=== PATIENT | female | born 1975 | race Caucasian/White ===

== ENCOUNTER → 2020-10-18 15:46 | Outpatient (CLI) | payer OTHER, SELFPAY ==
--- NOTE | ~2020-10-18 | MM_ITS ---
EXAMINATION: MM screening stefan BI w moris HISTORY: Screening TECHNIQUE: Craniocaudal and mediolateral oblique 3-D tomosynthesis images were obtained and synthetic 2-D images were generated. CAD analysis was submitted and interpreted. COMPARISON: Comparison to multiple prior studies sequentially, with oldest reviewed study dated 12/19. BREAST PARENCHYMAL COMPOSITION: There are scattered areas of fibroglandular density. FINDINGS: There is no evidence of suspicious mass, calcification, or architectural distortion to sugg est malignancy in either breast. There has been no suspicious interval change. IMPRESSION: 1. No mammographic evidence of malignancy. 2. Recommend routine screening mammography in one year. BI-RADS Category 1: Negative Reviewed, dictated and finalized at location A. DENTIAL ROOFER
== END ==
PROVIDERS: Visit Provider Obstetrics & Gynecology
DX: Z12.31 Encounter for screening mammogram for malignant neoplasm of breast (principal)
CPT/HCPCS: 77063; 77067

== ENCOUNTER 2021-09-22 10:04 | Emergency (ER) | payer OTHER, SELFPAY ==
--- NOTE | ~2021-09-22 | XR_ITS ---
EXAMINATION: XR chest 2V DATE: 09/22/2021 10:37 INDICATION: Cough TECHNIQUE: PA and lateral views of the chest are obtained. COMPARISON: None available FINDINGS: The lungs are free of acute opacities. There is no pleural effusion or pneumothorax. The ca rdiomediastinal silhouette is normal. The visualized bones and soft tissues are unremarkable. IMPRESSION: 1. No acute cardiopulmonary abnormality. Reviewed, dictated and finalized at location A. [facility]
[2021-09-22 10:14] VITALS: BP 133/85; PULSE 115; RESP 16; TEMP 36.1; O2SAT 96
--- NOTE | 2021-09-22 10:24 | ED.URI ---
HPI - URI/Sore Throat General Chief Complaint: Ear Stated Complaint: Ear Pain Time Seen by Provider: 09/22/21 10:24 Source: patient, RN notes reviewed and old records reviewed History of Present Illness HPI Narrative: 45-year-old female presents to the [facility] with complaints of sinus pressure, bilateral ear pressure, productive cough. Has a frontal headache. Patient reports that she was diagnosed with a sinus infection early to mid August and did 2 weeks of amoxicillin. States she has not gotten completely better. Has had drainage, takes Flonase daily. Has changed her allergy to medication to Xyzal. Past medical history includes migraines, vitamin D deficiency and seasonal allergies Related Data Home Medications Medication Instructions Recorded Confirmed contraceptive PO 01/07/21 06/03/21 pirbuterol 200 mcg/actuation mcg INHALATION 01/07/21 06/03/21 aerosol inhaler rizatriptan 5 mg tablet 5 mg PO ONCE 01/07/21 06/03/21 topiramate 15 mg sprinkle capsule 75 mg PO DAILY 01/07/21 06/03/21 Allergies Allergy/AdvReac Type Severity Reaction Status Date / Time Sulfa (Sulfonamide Allergy Mild Unknown Verified 09/22/21 10:10 Antibiotics) Review of Systems Review of Systems: All systems reviewed & are unremarkable except as noted in HPI and below Constitutional: Constitutional: Reports no additional constitutional complaints, Denies chills and Denies fever(s) Eyes: Eyes: Reports no additional eye complaints and Denies change in vision ENT: Reports as per HPI, Denies vertigo, Denies dizziness, Reports nasal congestion and Denies sore throat Cardiovascular: Cardiovascular: Reports no additional cardiovascular complaints and Denies chest pain Respiratory: Respiratory: Reports as per HPI, Reports cough, Denies dyspnea and Reports wheezing Gastrointestinal: Gastrointestinal: Reports no additional gastrointestinal complaints, Denies abdominal pain, Denies diarrhea, Denies nausea and Denies vomiting Musculoskeletal: Musculoskeletal: Reports no additional musculoskeletal complaints, Denies back pain, Denies joint swelling and Denies muscle cramps Integumentary/Breasts: Skin/Breast: Reports system reviewed and no additional complaints, except as docu, Denies erythema and Denies rash Neurologic: Reports as per HPI and Reports headache(s) (frontal pressure) Psychiatric: Psychiatric: Reports no additional psychiatric complaints Allergic/Immunologic: Allergic/Immunologic: Reports no additional allergic/immunologic complaints PMFSH Past Medical History Medical History Bilateral knee pain 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 There is no relevant family history pertinent to the patient complaint. Exam Const: General: alert and ill appearing acutely Nutritional Appearance: well nourished Orientation/consciousness: patient oriented x3 Limitations: no limitations HENMT: Head: normal to inspection Ears: external ears normal, TM's normal bilaterally and EAC's normal General nose exam: Normal external nose present, Abnormal mucous membranes and turbinates present boggy and erythematous and Nasal discharge present clear Face and sinus: face symmetric and sinus tender
[2021-09-22] MEDS: predniSONE 20 MG TABLET 40 MG PO (10:40)
[2021-09-22] MEDS: IPRATROPIUM BR 0.02% INH SOLN 0.5 MG/2.5 ML VIAL INHALATION (10:41)
[2021-09-22] MEDS: ALBUTEROL SULFATE NEB 2.5 MG/3 ML INH INHALATION (10:41)
== END 2021-09-22 12:00 | disposition home or self-care (01) ==
PROVIDERS: Emergency Provider Nurse Practitioner; PCP Family Medicine
DX: J40 Bronchitis, not specified as acute or chronic (principal); F17.210 Nicotine dependence, cigarettes, uncomplicated; M17.0 Bilateral primary osteoarthritis of knee
CPT/HCPCS: 71046; 99213; G0463; J7512

== ENCOUNTER → 2022-02-20 07:13 | Outpatient (CLI) | payer OTHER, SELFPAY ==
--- NOTE | ~2022-02-20 | MM_ITS ---
EXAMINATION: MM screening [facility] BI w moris HISTORY: Screening TECHNIQUE: Craniocaudal and mediolateral oblique 3-D tomosynthesis images were obtained and synthetic 2-D images were generated. CAD analysis was submitted and interpreted. COMPARISON: Comparison to multiple prior studies sequentially, with oldest reviewed study dated 12/29.. BREAST PARENCHYMAL COMPOSITION: There are scattered areas of fibroglandular density. FINDINGS: There is a new mass in the upper outer quadrant of the right breast, middle third. The left breast is stable without evidence for malignancy. IMPRESSION: 1. New right breast mass, upper outer quadrant. 2. Additional mammographic views and possible breast ultrasound are recommended. BI-RADS Category 0: Incomplete: Needs additional imaging evaluation. Reviewed, dictated and finalized at location A. IMPRESSION: 1. New right breast mass, upper outer quadrant. 2. Additional mammographic views and possible breast ultrasound are recommended . BI-RADS Category 0: Incomplete: Needs additional imaging evaluation.
== END ==
PROVIDERS: Visit Provider Nurse Practitioner Obstetrics & Gynecology
DX: Z12.31 Encounter for screening mammogram for malignant neoplasm of breast (principal); R92.8 Other abnormal and inconclusive findings on diagnostic imaging of breast
CPT/HCPCS: 77063; 77067

== ENCOUNTER → 2022-02-26 08:03 | Outpatient (CLI) | payer OTHER, SELFPAY ==
--- NOTE | ~2022-02-26 | MMUS_ITS ---
EXAMINATION: MM diagnostic stefan RT w moris, US breast RT limited HISTORY: New upper outer quadrant right breast mass reported on 02/20/2022 screening mammogram TECHNIQUE: Additional 3-D tomosynthesis images of the right breast were performed and synthetic 2-D i mages were generated. CAD analysis was submitted and interpreted. High resolution upper outer quadran t right breast ultrasound was performed. COMPARISON: 02/20/2022 and 10/18/2020 bilateral screening mammogram examinations FINDINGS: MAMMOGRAPHIC FINDINGS: Up to approximately 7.2 x 8.5 mm partially obscured opacity corresponding to the finding on 02/20/2022 screening mammogram examination is noted in the posterior upper outer right breast. ULTRASOUND: 11:00 6 cm from nipple: Parallel circumscribed 4.1 x 9.6 x 9.7 mm hypoechoic lesion with mixed sonolu cency and hypoechogenicity. There is some through transmission associated with the sonolucent areas. No suspicious shadowing or internal vascularity is noted. This may be a multi septated cyst. 12:00 9 cm from nipple: Parallel circumscribed hypoechoic 2.3 x 2.7 mm lesion without internal vascul arity or posterior shadowing IMPRESSION: 1. Probable benign findings 2. 6 month diagnostic right mammogram and upper outer quadrant right breast ultrasound examination ar e recommended BI-RADS category 3, probably benign findings. Reviewed, dictated and finalized at location A. IMPRESSION: 1. Probable benign findings 2. 6 month diagnostic right mammogram and upper outer quadrant right breast ult rasound examination are recommended BI-RADS category 3, probably benign findings.
== END ==
PROVIDERS: PCP Nurse Practitioner Obstetrics & Gynecology; Visit Provider Nurse Practitioner Obstetrics & Gynecology
DX: N63.10 Unspecified lump in the right breast, unspecified quadrant (principal); R92.8 Other abnormal and inconclusive findings on diagnostic imaging of breast
CPT/HCPCS: 76642; 77061; 77065; G0279

== ENCOUNTER 2022-06-18 08:00 | Outpatient (NON) | payer OTHER, SELFPAY | END 2022-06-18 08:01 | disposition home or self-care (01) | LOC: ANHLAB 06-19 08:23 | PROVIDERS: PCP Family Medicine; Visit Provider Internal Medicine Gastroenterology | DX: D12.2 Benign neoplasm of ascending colon (principal) | CPT/HCPCS: 88305 ==

== ENCOUNTER 2022-06-18 10:41 | Day surgery (SDC) | payer OTHER, SELFPAY ==
[2022-06-03 10:55] VITALS: BMI 31.8
[2022-06-18 11:12] VITALS: BP 111/75; PULSE 92; RESP 14; TEMP 37.6; O2SAT 97
[2022-06-18 11:13] VITALS: BMI 32.0
--- NOTE | 2022-06-18 12:01 | WPDANESEPPF ---
Anes - Initial Pre Proc Eval Procedure: Operation Date: 06/18/22 12:30 Proposed Procedures p Screening Colonoscopy - Sai Loja MD Date/Time: 06/18/22 12:01 Surgeon: Sai Loja MD Pre Op Diagnosis: Neplasm Screening Patient Data Age: 46 Gender: F Height: 1.63 m Weight: 84.55 kg Allergies Allergy/AdvReac Type Severity Reaction Status Date / Time Sulfa (Sulfonamide Allergy Mild Hives Verified 06/18/22 11:07 Antibiotics) Home Medications Medication Instructions Recorded Confirmed Type rizatriptan 5 mg tablet 5 mg PO ONCE PRN Headache 01/07/21 06/18/22 History albuterol sulfate 90 mcg/actuation 2 puff inhalation QID PRN 09/22/21 06/18/22 Rx aerosol inhaler shortness of breath or wheezing #6.7 grams cetirizine 10 mg capsule (Zyrtec) 10 mg PO DAILY 06/03/22 06/18/22 History montelukast 10 mg tablet 10 mg PO DAILY 06/03/22 06/18/22 History (Singulair) topiramate 50 mg tablet 50 mg PO BID 06/18/22 06/18/22 History Patient hx anesthesia problems: none Family hx anesthesia problems: none Results Review: All pre-operative results and documents have been reviewed as part of the pre-operative evaluation. [facility] Past Medical History Medical History Bilateral knee pain Chondromalacia of knee COPD (chronic obstructive pulmonary disease) Hx of migraines Left knee DJD Right knee DJD Surgical History Surgical History History of appendectomy History of varicose vein stripping Family History Family History Unknown Lung cancer Brain cancer Social History Social History Smoking packs per day: 0.5 Smoking cigarettes per day: 10.0 Years smoked: 28 Smoking pack-years: 14.00 Tobacco type: cigarettes Alcohol intake: current Alcohol use details: 4 per month Substance use type: does not use Living arrangements: with family Gender identity (if verbalized by the patient): Female Spiritual care concerns: No Anes - Eval Final PreProcedure Day of Procedure 06/18/22 12:01 Patient weight: obese Heart: regular rate and rhythm Lungs: decreased breath sounds Airway: Mallampati scale class II Last oral intake: >/= 8 hours ASA classification: III Emergent: no Anesthetic plan: proceed Anesthesia type and monitoring: general GIVS and standard monitoring Results Review: All pre-operative results and documents have been reviewed as part of the pre-operative evaluation. Informed Consent: The patient's anesthetic plan and its attendant risks and benefits were discussed with the patient/family/POA. Questions were solicited and answers provided to the satisfaction of the patient/family/POA.
[2022-06-18] MEDS: LACTATED RINGERS 1,000 ML 150 ML IV CONT (12:13)
--- NOTE | 2022-06-18 12:32 | PM.HPGS ---
History of Present Illness History of Present Illness Consent: Risks, benefits, and alternatives have been discussed and questions answered. Patient agrees to proceed with procedure. Chief complaint: Neplasm Screening Narrative: Rebecca Centeno is a 46 year old female here for first screening colonoscopy Review of Systems Constitutional: Constitutional: Denies headache(s) and Denies weakness Eyes: Eyes: Denies blurry vision ENT: Reports Normal hearing present, Denies headache(s) and Denies neck pain Cardiovascular: Cardiovascular: Denies chest pain and Denies dyspnea Respiratory: Respiratory: Denies dyspnea Gastrointestinal: Gastrointestinal: Reports no additional gastrointestinal complaints Genitourinary: Genitourinary: Denies dysuria Musculoskeletal: Musculoskeletal: Denies neck pain Integumentary/Breasts: Skin/Breast: Denies dry skin Neurologic: Reports Normal hearing present, Denies headache(s) and Denies weakness Psychiatric: Psychiatric: Denies anxiety Endocrine: Endocrine: Denies change in body appearance Hematologic/Lymphatic: Hematologic/Lymphatic: Denies easy bleeding Allergic/Immunologic: Allergic/Immunologic: Denies urticaria PMFSH Past Medical History Medical History (Updated 06/18/22 @ 12:32 by Sai Loja MD) Bilateral knee pain Chondromalacia of knee Colon cancer screening COPD (chronic obstructive pulmonary disease) Hx of migraines Left knee DJD Right knee DJD Surgical History Surgical History History of appendectomy History of varicose vein stripping Family History Family History Unknown Lung cancer Brain cancer Social History Social History Smoking packs per day: 0.5 Smoking cigarettes per day: 10.0 Years smoked: 28 Smoking pack-years: 14.00 Tobacco type: cigarettes Alcohol intake: current Alcohol use details: 4 per month Substance use type: does not use Living arrangements: with family Gender identity (if verbalized by the patient): Female Spiritual care concerns: No Meds Home Medications and Allergies Home Medications Medication Instructions Recorded Confirmed Type rizatriptan 5 mg tablet 5 mg PO ONCE PRN Headache 01/07/21 06/18/22 History albuterol sulfate 90 mcg/actuation 2 puff inhalation QID PRN 09/22/21 06/18/22 Rx aerosol inhaler shortness of breath or wheezing #6.7 grams cetirizine 10 mg capsule (Zyrtec) 10 mg PO DAILY 06/03/22 06/18/22 History montelukast 10 mg tablet 10 mg PO DAILY 06/03/22 06/18/22 History (Singulair) topiramate 50 mg tablet 50 mg PO BID 06/18/22 06/18/22 History Allergies Allergy/AdvReac Type Severity Reaction Status Date / Time Sulfa (Sulfonamide Allergy Mild Hives Verified 06/18/22 11:07 Antibiotics) Vital Signs Vital Signs - 24 hr 06/18/22 11:12 Temperature 99.7 F H Pulse Rate 92 Respiratory Rate 14 Blood Pressure 111/75 Pulse Oximetry 97 Oxygen Delivery Room Air Exam Const: General: comfortable and no acute distress HENMT: General nose exam: Normal nares present Eyes: General: appearance normal, both eyes and all related structures Neck: Neck: no JVD Resp: Auscultation: clear to auscultation bilaterally Cardio: Rate: regular rate Rhythm: regular rhythm GI: Inspection: non-distended GI Palp: Yes Soft to palpation Skin: General skin exam: normal color Neuro: General: gait normal Speech: normal speech Extrem: General: normal to inspection Psych: Mental Status: mental status grossly normal Assessment and Plan Assessment and plan (1) Colon cancer screening: Code(s): Z12.11 - Encounter for screening for malignant neoplasm of colon Status: Acute Assessment and Plan: colonoscopy
[2022-06-18 12:55] VITALS: BP 114/99; PULSE 81; RESP 14; O2SAT 99
[2022-06-18 13:05] VITALS: BP 120/91; PULSE 74; RESP 14; O2SAT 100
[2022-06-18 13:15] VITALS: BP 117/52; PULSE 77; RESP 14; O2SAT 99
--- NOTE | 2022-06-18 13:17 | WPDANESPN ---
Anes - Prog Note Post-Op Date/Time: 06/18/22 13:17 Cardiovascular status: normal Respiratory status: normal Airway patency: baseline Mental status: baseline Post-Op hydration status: normal Vital Signs: Last Vital Signs Temp 37.6 C H 06/18/22 11:12 Pulse 74 06/18/22 13:05 Resp 14 06/18/22 13:05 BP 120/91 H 06/18/22 13:05 Pulse Ox 100 06/18/22 13:05 O2 Del Method Room Air 06/18/22 13:05 Pain Score (VAS): 0 I/O: Intake & Output 06/17/22 06/18/22 06/18/22 23:59 07:59 15:59 Intake Total 600 Balance 600 Patient Feedback: Patient satisfied with anesthetic care.
== END 2022-06-18 13:25 | disposition home or self-care (01) ==
PROVIDERS: PCP Family Medicine; Visit Provider Internal Medicine Gastroenterology
PROC: 0DJD8ZZ Inspection of Lower Intestinal Tract, Via Natural or Artificial Opening Endoscopic (ICD-10-PCS; CPT 45378; principal; 2022-06-18 12:30)
DX: Z12.11 Encounter for screening for malignant neoplasm of colon (principal)
CPT/HCPCS: 45380

== ENCOUNTER → 2022-08-15 08:12 | Outpatient (CLI) | payer OTHER, SELFPAY ==
--- NOTE | ~2022-08-15 | MMUS_ITS ---
EXAMINATION: MM diagnostic stefan RT w moris, US breast RT limited HISTORY: Six-month follow-up for probably benign right breast masses TECHNIQUE: Craniocaudal, mediolateral, and mediolateral oblique 3-D tomosynthesis images of the right breast were performed and synthetic 2-D images were generated. CAD analysis was submitted and interp reted. High resolution limited right breast ultrasound was performed. COMPARISON: 02/26/2022, 02/20/2022, 10/18/2020, 12/13/2018 BREAST PARENCHYMAL COMPOSITION: There are scattered areas of fibroglandular density. FINDINGS: MAMMOGRAPHIC FINDINGS: There is a stable 8 mm obscured low density mass in the middle third of the upper breast at the 11:00 location 8 cm from the nipple. No suspicious calcification or architectural distortion are identifie d. ULTRASOUND: There is a stable 10 mm x 6 mm oval, circumscribed, parallel, complex cystic and solid mass at the 11 :00 location 6 cm from the nipple with no posterior features or internal vascularity, possible cluste red microcysts. There is a stable 3 mm oval, circumscribed, parallel, hypoechoic mass at the 12:00 lo cation 9 cm from the nipple. IMPRESSION: 1. Probably benign right breast masses. 2. Recommend 6 month follow-up diagnostic mammogram and ultrasound. BI-RADS category 3, probably benign findings. Reviewed, dictated and finalized at location A. IMPRESSION: 1. Probably benign right breast masses. 2. Recommend 6 month follow-up diagnostic mammogram and ultrasound. BI-RADS category 3, probably benign findings.
== END ==
PROVIDERS: PCP Family Medicine
DX: R92.8 Other abnormal and inconclusive findings on diagnostic imaging of breast (principal); N63.11 Unspecified lump in the right breast, upper outer quadrant; N63.15 Unspecified lump in the right breast, overlapping quadrants
CPT/HCPCS: 76642; 77061; 77065; G0279

== ENCOUNTER 2023-02-21 08:30 | Emergency (ER) | payer OTHER, SELFPAY ==
--- NOTE | 2023-02-21 08:36 | ED.EAR ---
HPI - Ear Problem General Chief complaint: Ear Stated complaint: Right Ear Irritation Source: patient and RN notes reviewed History of Present Illness HPI Narrative: 47-year-old female presents to urgent care with complaints of right ear pain since Thursday. Patient denies any fevers, chills sore throat, vomiting, diarrhea, chest pain, or shortness of breath. Patient states she had a sinus infection last month where she was treated with a Z-Mars unsuccessfully and then placed on Augmentin. Some parts of this dictation were generated by voice recognition software and may contain typographical and/or grammatical inaccuracies. Related Data Home Medications Medication Instructions Recorded Confirmed rizatriptan 5 mg tablet 5 mg PO ONCE PRN Headache 01/07/21 02/21/23 cetirizine 10 mg capsule (Zyrtec) 10 mg PO DAILY 06/03/22 02/21/23 montelukast 10 mg tablet 10 mg PO DAILY 06/03/22 02/21/23 (Singulair) topiramate 50 mg tablet 50 mg PO BID 06/18/22 02/21/23 Allergies Allergy/AdvReac Type Severity Reaction Status Date / Time Sulfa (Sulfonamide Allergy Mild Hives Verified 06/18/22 11:07 Antibiotics) Review of Systems Review of Systems: Pertinent positives and pertinent negatives per HPI. [facility] Past Medical History Medical History (Updated 02/21/23 @ 09:10 by Noreen Ngo, KOFI) Bilateral knee pain Chondromalacia of knee Colon cancer screening COPD (chronic obstructive pulmonary disease) Hx of migraines Left knee DJD Right knee DJD Surgical History Surgical History History of appendectomy History of varicose vein stripping Family History Family History Unknown Lung cancer Brain cancer Social History Social History Smoking packs per day: 0.5 Smoking cigarettes per day: 10.0 Years smoked: 28 Smoking pack-years: 14.00 Tobacco type: cigarettes Alcohol intake: current Alcohol use details: 4 per month Substance use type: does not use Living arrangements: with family Gender identity (if verbalized by the patient): Female Spiritual care concerns: No Comments At the time of my signature, I reviewed and agree with the nursing past medical, surgical, social, and family history. There is no relevant family history pertinent to the patient complaint. Exam Narrative: GENERAL: This is a well-nourished, well-developed patient, in no apparent distress. HEAD: normocephalic, atraumatic. EYES: Sclera clear/white. Vision is grossly intact. EARS: External ears normal, right canal and TMs erythemic. TM bulging. NOSE: External nose normal with no obvious nasal discharge, nares without redness, no rhinorrhea. THROAT: Mucous membranes moist, posterior pharynx clear. NECK: Neck supple, non-tender without lymphadenopathy, masses or thyromegaly. CARDIOVASCULAR: Regular rate RESPIRATORY: No respiratory distress SKIN: warm, intact with no suspicious lesions or rash, good texture and turgor. NEURO: awake, alert, and oriented to person, place and time. There were no obvious focal neurologic abnormalities. Course Course Level of Care: Express Care Visit Vital Signs Vital signs: Vital Signs Temperature 97.6 F 02/21/23 08:46 Pulse Rate 80 02/21/23 08:46 Respiratory Rate 14 02/21/23 08:46 Blood Pressure 101/68 02/21/23 08:46 Pulse Oximetry 98 02/21/23 08:46 Oxygen Delivery Room Air 02/21/23 08:46 Temperature 97.6 F 02/21/23 08:46 Pulse Rate 80 02/21/23 08:46 Respiratory Rate 14 02/21/23 08:46 Blood Pressure 101/68 02/21/23 08:46 Pulse Oximetry 98 02/21/23 08:46 Oxygen Delivery Room Air 02/21/23 08:46 reviewed Medical Decision Making MDM Narrative Medical decision making narrative: Take the antibiotics as directed. Follow-up with primary care and have ear reche
[2023-02-21 08:46] VITALS: BP 101/68; PULSE 80; RESP 14; TEMP 36.4; O2SAT 98
== END 2023-02-21 09:13 | disposition home or self-care (01) ==
PROVIDERS: Emergency Provider Nurse Practitioner Family; PCP Family Medicine
DX: H66.91 Otitis media, unspecified, right ear (principal); F17.210 Nicotine dependence, cigarettes, uncomplicated; F44.9 Dissociative and conversion disorder, unspecified; M17.0 Bilateral primary osteoarthritis of knee
CPT/HCPCS: 99213; G0463

== ENCOUNTER → 2023-02-23 07:33 | Outpatient (CLI) | payer OTHER, SELFPAY ==
--- NOTE | ~2023-02-23 | MMUS_ITS ---
EXAMINATION: MM diagnostic stefan BI w moris, US breast RT limited HISTORY: Six-month follow-up for probably benign right breast masses TECHNIQUE: Craniocaudal, mediolateral, and mediolateral oblique 3-D tomosynthesis images of the breas ts were performed and synthetic 2-D images were generated. CAD analysis was submitted and interpreted . High resolution limited right breast ultrasound was performed. COMPARISON: 08/15/2022, 02/26/2022, 02/20/2022, 10/18/2020 BREAST PARENCHYMAL COMPOSITION: There are scattered areas of fibroglandular density. FINDINGS: MAMMOGRAPHIC FINDINGS: Right breast: Again seen is a stable 8 mm obscured low density mass in the middle third of the upper outer quadrant of the breast at the 11:00 location 8 cm from the nipple. There has been no suspicious interval change. Left breast: No suspicious mass, calcification, or architectural distortion are identified to suggest malignancy. There has been no suspicious interval change. ULTRASOUND: There is a stable 10 mm x 5 mm oval, circumscribed, parallel, complex cystic and solid mass with no p osterior features or internal vascularity at the 11:00 location 6 cm from the nipple in the right claudio ast. Also seen is a stable 3 mm oval, circumscribed, parallel, hypoechoic mass at the 12:00 location 9 cm from the nipple in the right breast. IMPRESSION: 1. Stable, probably benign right breast masses. 2. Given one year of interval stability, recommend 12 month followup diagnostic mammogram and ultraso und. BI-RADS category 3, probably benign findings. Reviewed, dictated and finalized at location A. IMPRESSION: 1. Stable, probably benign right breast masses. 2. Given one year of interval stability, recommend 12 month followup diagnostic mammogram and ultrasound. BI-RADS category 3, probably benign findings.
== END ==
PROVIDERS: PCP Family Medicine
DX: R92.8 Other abnormal and inconclusive findings on diagnostic imaging of breast (principal)
CPT/HCPCS: 76642; 77062; 77066; G0279

== ENCOUNTER 2024-01-18 17:12 | Emergency (ER) | payer OTHER, SELFPAY ==
[2024-01-18 17:21] VITALS: BP 135/79; PULSE 89; RESP 18; TEMP 36.8; O2SAT 97
--- NOTE | 2024-01-18 17:56 | ED.GENADULT ---
HPI - General Adult General Chief complaint: Extremity Problem,Nontraumatic Stated complaint: Right Arm Pain Time Seen by Provider: 01/18/24 17:52 Source: patient, RN notes reviewed and old records reviewed Mode of arrival: ambulatory Limitations: no limitations History of Present Illness HPI narrative: patient to [facility] with right elbow pain for 2-3 weeks. Patient denies any known injury. 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 Patient has not attempted to treat at home. Patient denies numbness, tingling, decreased range of motion. Related Data Home Medications Medication Instructions Recorded Confirmed montelukast 10 mg tablet 10 mg PO DAILY 06/03/22 01/18/24 (Singulair) ergocalciferol (vitamin D2) 1,250 1,250 mcg PO WEEKLY 01/18/24 01/18/24 mcg (50,000 unit) capsule Allergies Allergy/AdvReac Type Severity Reaction Status Date / Time Sulfa (Sulfonamide Allergy Mild Hives Verified 01/18/24 17:37 Antibiotics) Review of Systems Review of Systems: All systems reviewed & are unremarkable except as noted in HPI and below Constitutional: Constitutional: Reports no additional constitutional complaints Eyes: Eyes: Reports no additional eye complaints ENT: Reports system reviewed and no additional complaints, except as documented Cardiovascular: Cardiovascular: Reports no additional cardiovascular complaints, Denies chest pain and Denies dyspnea Respiratory: Respiratory: Reports no additional respiratory complaints, Denies cough and Denies dyspnea Musculoskeletal: Musculoskeletal: Reports arthralgias ( Right elbow), Denies joint swelling, Denies muscle weakness, Denies numbness, Denies radiating pain into limb and Reports stiffness ( right elbow upon wakening) Neurologic: Reports system reviewed and no additional complaints, except as documented Psychiatric: Psychiatric: Reports no additional psychiatric complaints [facility] Past Medical History Medical History (Updated 01/18/24 @ 18:06 by Denae Bridges APRN) Bilateral knee pain Chondromalacia of knee Colon cancer screening COPD (chronic obstructive pulmonary disease) Hx of migraines Left knee DJD Right knee DJD Surgical History Surgical History History of appendectomy History of varicose vein stripping Family History Family History Unknown Lung cancer Brain cancer Social History Social History Smoking packs per day: 0.5 Smoking cigarettes per day: 10.0 Years smoked: 25 Smoking pack-years: 12.50 Smoking status: Current every day smoker Tobacco type: cigarettes Alcohol intake: current Alcohol use details: social Substance use type: does not use Living arrangements: with family Gender identity (if verbalized by the patient): Female Spiritual care concerns: No Comments At the time of my signature, I reviewed and agree with the nursing past medical, surgical, social, and family history. There is no relevant family history pertinent to the patient complaint. Exam Const: General: cooperative, healthy appearing, comfortable, no acute distress, alert and well nourished Nutritional Appearance: well nourished Orientation/consciousness: patient oriented x3 Limitations: no limitations HENMT: Head: normal to inspection Ears: external ears normal Face/Nose/Sinus: Normal external nose present, Normal nares present, normal facial exam, No erythema and No edema Face and sinus: normal facial exam, no erythema and no edema Mouth: Yes Normal oral and palatal mucosa present Eyes: General: appearance normal, both eyes and all related structures Neck: Neck: normal visual inspection, full ROM and no meningeal signs Lymphatic: no lymphadenopathy noted and no lymphedema noted Chest: Chest palpati
== END 2024-01-18 18:10 | disposition home or self-care (01) ==
PROVIDERS: Emergency Provider Nurse Practitioner Family; PCP Family Medicine
DX: M77.8 Other enthesopathies, not elsewhere classified (principal); F17.210 Nicotine dependence, cigarettes, uncomplicated; J44.9 Chronic obstructive pulmonary disease, unspecified; M17.0 Bilateral primary osteoarthritis of knee
CPT/HCPCS: 99213; G0463

== ENCOUNTER 2024-06-13 13:11 | Outpatient (CLI) | payer OTHER, SELFPAY ==
--- NOTE | ~2024-06-13 | MM_ITS ---
EXAMINATION: MM screening stefan BI w moris HISTORY: Screening TECHNIQUE: Craniocaudal and mediolateral oblique 3-D tomosynthesis images were obtained and synthetic 2-D images were generated. CAD analysis was submitted and interpreted. COMPARISON: Comparison to multiple prior studies sequentially, with oldest reviewed study dated 02/2019. BREAST PARENCHYMAL COMPOSITION: Not dense: There are scattered areas of fibroglandular density. FINDINGS: The left breast is stable without evidence for malignancy. There is a new asymmetry in the lower outer quadrant of the right breast. There are no suspicious calcifications or architectural dis tortion. IMPRESSION: 1. New right breast asymmetry, lower outer quadrant. 2. Additional mammographic views and possible breast ultrasound are recommended. BI-RADS Category 0: Incomplete: Needs additional imaging evaluation. Reviewed, dictated and finalized at location B. IMPRESSION: 1. New right breast asymmetry, lower outer quadrant. 2. Additional mammographic views and possible breast ultrasound are recommended . BI-RADS Category 0: Incomplete: Needs additional imaging evaluation.
== END 2024-06-13 13:12 | disposition home or self-care (01) ==
PROVIDERS: PCP Family Medicine; Visit Provider Nurse Practitioner
DX: Z12.31 Encounter for screening mammogram for malignant neoplasm of breast (principal); R92.8 Other abnormal and inconclusive findings on diagnostic imaging of breast
CPT/HCPCS: 77063; 77067

== ENCOUNTER 2024-07-15 12:56 | Outpatient (CLI) | payer OTHER, SELFPAY ==
--- NOTE | ~2024-07-15 | MMUS_ITS ---
EXAMINATION: MM diagnostic stefan RT w moris, US breast RT limited HISTORY: Follow-up right breast asymmetry TECHNIQUE: Additional 3-D tomosynthesis images of the right breast were performed and synthetic 2-D i mages were generated. CAD analysis was submitted and interpreted. High resolution Limited right breas t ultrasound was performed. COMPARISON: Comparison to multiple prior studies sequentially, with oldest reviewed study dated 10/09. BREAST PARENCHYMAL COMPOSITION: Not dense: There are scattered areas of fibroglandular density. FINDINGS: MAMMOGRAPHIC FINDINGS: There is a focal asymmetry in the lower outer quadrant of the right breast, middle third. There are n o suspicious calcifications or architectural distortion. ULTRASOUND: Limited right breast ultrasound: At 7:00, 9 cm from the nipple there is a cluster of microcysts measu ring up to 1 cm in aggregate. At 12:00, 8 cm from the nipple there is an oval hypoechoic 4 mm mass wi th parallel orientation, no posterior features or internal vascularity, likely benign, stable. At 10: 30, 6 cm from the nipple there is a cluster of microcysts, stable. IMPRESSION: 1. Stable benign findings of the right breast. No new masses, calcifications or architectural distort ion to suggest malignancy. 2. Routine yearly screening mammogram and regular clinical breast examination are recommended. BI-RADS Category 2: Benign finding(s). Reviewed, dictated and finalized at location B. IMPRESSION: 1. Stable benign findings of the right breast. No new masses, calcifications or architectural distortion to suggest malignancy. 2. Routine yearly screening mammogram and regular clinical breast examination a re recommended. BI-RADS Category 2: Benign finding(s).
== END 2024-07-15 12:57 | disposition home or self-care (01) ==
LOC: ANHIMG 12:57
PROVIDERS: Visit Provider Obstetrics & Gynecology
DX: R92.8 Other abnormal and inconclusive findings on diagnostic imaging of breast (principal)
CPT/HCPCS: 76642; 77061; 77065; G0279

== ENCOUNTER 2024-08-03 13:08 | Emergency (ER) | payer OTHER, SELFPAY ==
--- NOTE | ~2024-08-03 | CT_ITS ---
CT abdomen pelvis w con Ordering provider: Yazan Dubose MD History: 48 years Female with . epigastric pain . Comparison: None. Technique: CT abdomen and pelvis with IV and without oral contrast. Automated exposure control and it erative reconstruction technique were employed. The dose-length product was 1192.42 mGy-cm. 100 mL Om nipaque 350 was given IV. Findings: VISUALIZED LOWER CHEST: Normal. UPPER ABDOMINAL ORGANS: Liver: Hepatomegaly. Gallbladder: Normal. Spleen: Normal. Stomach/duodenum: Normal. Pancreas: Normal. Adrenals: Prominent left adrenal gland. Kidneys: Normal. PELVIC ORGANS: The bladder is normal. Uterus: IUD is noted. BOWEL AND MESENTERY: Colon: No evidence of diverticulitis. Fecal material is seen in the right side of the colon suggestiv e of constipation. The appendix is not demonstrated. Small Bowel: Normal. No obstruction. Peritoneum/mesentery: No free air or free fluid. No mesenteric lymphadenopathy. RETROPERITONEUM: Mild atheromatous disease of the abdominal aorta. No retroperitoneal lymphadenopat hy. MUSCULOSKELETAL: Superficial soft tissues: Fat containing umbilical hernia. Otherwise, The superficial soft tissues ar e normal. Bones: Age appropriate degenerative changes of the spine. IMPRESSION: 1. Hepatomegaly. 2. Slightly prominent left adrenal gland. 3. Constipation. 4. No evidence of appendicitis, diverticulitis or intestinal obstruction. 5. Small fat-containing umbilical hernia. Reviewed, dictated and finalized at location A.
[2024-08-03 13:10] VITALS: BP 138/68; PULSE 100; RESP 18; TEMP 36.9; O2SAT 100
[2024-08-03 13:21] VITALS: BP 136/81; PULSE 105; RESP 24; O2SAT 97
[2024-08-03 13:30] LABS: Basophils Absolute Auto 0.1 K/mm3 (0.0-0.1); Basophils Percent Auto 0.4 % (0.2-1.2); Eosinophils Absolute Auto 0.4 K/mm3 (0-0.3); Eosinophils Percent Auto 2.6 % (0-4.4); Hematocrit 45.5 % (37.0-47.0); Hemoglobin 15.9 g/dL (12.0-15.0); Immature Granulocyte Absolute 0.08 K/mm3 (0.00-0.031); Immature Granulocyte Percent A 0.5 % (0-0.5); Lymphocytes Absolute Auto 2.95 K/mm3 (0.9-3.2); Lymphocytes Percent Auto 18.2 % (18.3-44.2); Mean Corpuscular HGB Conc 34.9 g/dl (32-36); Mean Corpuscular Hemoglobin 31.6 pg (26-34); Mean Corpuscular Volume 90.5 fl (80-100); Mean Platelet Volume 9.2 fl (7.4-10.4); Monocytes Absolute Auto 1.1 K/mm3 (0.1-0.6); Monocytes Percent Auto 6.5 % (2.6-8.5); Neutrophils Absolute Auto 11.7 K/mm3 (1.3-6.7); Neutrophils Percent Auto 71.8 % (45.5-73.1); Platelet Count Result 385 k/mm3 (150-375); Red Blood Count 5.03 M/mm3 (4.2-5.4); Red Cell Distribution Width 12.5 % (11.5-14.5); White Blood Count 16.2 K/mm3 (4.5-10.0)
[2024-08-03 13:39] LABS: Alanine Aminotransferase 29 U/L (6-35); Albumin Level 4.7 g/dL (3.5-5.1); Alkaline Phosphatase 88 U/L (38-126); Anion Gap 11 mmol/L (4-12); Aspartate Amino Transferase 28 U/L (14-36); Bilirubin,Total 0.6 mg/dL (0.2-1.3); Blood Urea Nitrogen 6 mg/dL (7-17); Calcium 9.3 mg/dL (8.4-10.2); Carbon Dioxide 25 mmol/L (22-30); Chloride 101 mmol/L (98-107); Estimated CRCL calculation 92 ml/min; Estimated Glomerular Filt Rate > 60; Glucose 115 mg/dL (65-110); Lipase 33 U/L (23-300); Potassium 3.7 mmol/L (3.4-5.0); Sodium 137 mmol/L (137-145)
[2024-08-03 13:50] LABS: Add Urine Microscopic? NO; Appearance Urine Clear (Clear); Bilirubin Urine Negative (Negative); Blood Urine Negative (Negative); Color Urine Yellow (Yellow); Glucose Urine UA Negative (Negative); Ketones Urine Negative (Negative); Leukocyte Esterase Ur Negative LEU/UL (Negative); Nitrate Urine Negative (Negative); Protein Urine Negative (Negative); Specific Grav Ur 1.013 (1.001-1.035); Urobilinogen Urine 0.2 mg/dL (<2.0)
[2024-08-03] MEDS: ONDANSETRON INJ 4 MG/2 ML VIAL IV PUSH (14:22)
[2024-08-03] MEDS: SODIUM CHLORIDE 0.9% IV 1,000 ML 999 ML IV CONT (14:22)
--- NOTE | 2024-08-03 14:29 | ED.GENADULT ---
HPI - General Adult General Chief complaint: Abdominal Pain Stated complaint: upper quadrant abd pain & vomiting Time Seen by Provider: 08/03/24 13:17 History of Present Illness HPI narrative: Patient is a 40-year-old female who presents ER with epigastric pain. Ongoing over last 24 hours. She feels bloated. She has had persistent vomiting today. She has been passing gas but has not had a bowel movement over last week. No fevers or chills or sweats. No chest pain or chest pressure. Has found no alleviating factors. Related Data Home Medications Medication Instructions Recorded Confirmed montelukast 10 mg tablet 10 mg PO DAILY 06/03/22 01/18/24 (Singulair) ergocalciferol (vitamin D2) 1,250 1,250 mcg PO WEEKLY 01/18/24 01/18/24 mcg (50,000 unit) capsule Allergies Allergy/AdvReac Type Severity Reaction Status Date / Time Sulfa (Sulfonamide Allergy Mild Hives Verified 08/03/24 13:20 Antibiotics) Review of Systems Review of Systems: All systems reviewed & are unremarkable except as noted in HPI and below Constitutional: Constitutional: Reports no additional constitutional complaints Cardiovascular: Cardiovascular: Reports no additional cardiovascular complaints Respiratory: Respiratory: Reports no additional respiratory complaints Gastrointestinal: Gastrointestinal: Reports abdominal pain, Reports constipation, Denies diarrhea, Reports nausea and Reports vomiting PMFSH Past Medical History Medical History (Updated 08/03/24 @ 16:16 by Yazan Dubose MD) Bilateral knee pain Chondromalacia of knee Colon cancer screening COPD (chronic obstructive pulmonary disease) Hx of migraines Left knee DJD Right knee DJD Surgical History Surgical History History of appendectomy History of varicose vein stripping Family History Family History Unknown Lung cancer Brain cancer Social History Social History Smoking packs per day: 0.5 Smoking cigarettes per day: 10.0 Years smoked: 25 Smoking pack-years: 12.50 Smoking status: Current every day smoker Tobacco type: cigarettes Alcohol intake: current Alcohol use details: social Substance use type: does not use Living arrangements: with family Gender identity (if verbalized by the patient): Female Spiritual care concerns: No Exam Narrative: GENERAL: Well-appearing, well-nourished, and in no acute distress. HEAD: Normocephalic, atraumatic. ENT: Mucous membranes moist. NECK: Supple. CHEST: Clear to auscultation. No respiratory distress. HEART: Regular rate and rhythm. Normal peripheral pulses. ABDOMEN: Soft, nontender, nondistended, normal active bowel sounds. EXTREMITIES: Normal range of motion. No edema. SKIN: Warm, dry, no rash. NEURO: N Alert and oriented x3. PSYCH: Normal mood and affect. Course Course Emergency Course: Patient resting comfortably. Informed of results. Treat with laxatives at home. Vital Signs Vital signs: Vital Signs Temperature 98.4 F 08/03/24 13:10 Pulse Rate 100 08/03/24 13:10 Respiratory Rate 18 08/03/24 13:10 Blood Pressure 138/68 08/03/24 13:10 Pulse Oximetry 100 08/03/24 13:10 Oxygen Delivery Room Air 08/03/24 13:10 Temperature 98.4 F 08/03/24 13:10 Pulse Rate 105 H 08/03/24 16:21 Respiratory Rate 18 08/03/24 16:21 Blood Pressure 139/83 08/03/24 16:21 Pulse Oximetry 95 08/03/24 16:21 Oxygen Delivery Room Air 08/03/24 13:10 Medical Decision Making Vital Signs Vital Signs: Vital Signs Temperature 98.4 F 08/03/24 13:10 Pulse Rate 100 08/03/24 13:10 Respiratory Rate 18 08/03/24 13:10 Blood Pressure 138/68 08/03/24 13:10 Pulse Oximetry 100 08/03/24 13:10 Oxygen Delivery Room Air 08/03/24 13:10 Temperature 98.4 F 08/03/24 13
[2024-08-03] MEDS: MORPHINE SULFATE (*CRX) 4 MG/ML INJ IV PUSH (14:45)
[2024-08-03 14:46] VITALS: BP 161/108; PULSE 85; RESP 12; O2SAT 100
[2024-08-03 16:21] VITALS: BP 139/83; PULSE 105; RESP 18; O2SAT 95
== END 2024-08-03 17:42 | disposition home or self-care (01) ==
PROVIDERS: Emergency Provider Emergency Medicine
DX: K59.00 Constipation, unspecified (principal); J44.9 Chronic obstructive pulmonary disease, unspecified; M17.0 Bilateral primary osteoarthritis of knee; F17.210 Nicotine dependence, cigarettes, uncomplicated; R16.0 Hepatomegaly, not elsewhere classified; K42.9 Umbilical hernia without obstruction or gangrene
CPT/HCPCS: 36415; 74177; 80053; 81003; 83690; 85025; 96361; 96374; 96375; 99284; J2270; J2405; J7030; Q9967